=== PATIENT | female | born 1990 | race Caucasian/White ===

== ENCOUNTER 2021-09-13 10:51 | Outpatient (CLI) | payer OTHER ==
[2021-09-14 17:02] LABS: SARS-CoV-2 PCR by NAA Not Detected (NotDetected)
== END 2021-09-13 10:52 | disposition home or self-care (01) ==
LOC: CSHLAB 10:51
PROVIDERS: ATTEND Obstetrics & Gynecology
DX: Z20.822 Contact with and (suspected) exposure to COVID-19 (principal)
CPT/HCPCS: U0003; U0005

== ENCOUNTER 2021-09-18 05:30 | Inpatient (IN) | payer BC, OTHER ==
[2021-09-18] MEDS: Lactated Ringer's 1,000 ML IV SCH ×2 (06:20→07:24)
[2021-09-18] MEDS ORDERED: hydrALAZINE 20 MG/ML VIAL SLOW IVP PRN ×2 (06:25→12:04)
[2021-09-18] MEDS ORDERED: Famotidine/PF 20 mg/2ml Vial SLOW IVP PRN (06:25)
[2021-09-18] MEDS ORDERED: Promethazine HCl 25 MG/ML VIAL IM PRN ×3 (06:25→12:04)
[2021-09-18] MEDS ORDERED: Bicitra 30 ML UDCUP PO PRN (06:25)
[2021-09-18] MEDS ORDERED: Ondansetron PF 4 MG/2 ML Vial IVP PRN ×3 (06:25→12:04)
[2021-09-18] MEDS ORDERED: Docusate 100 MG CAP PO PRN (06:25)
[2021-09-18] MEDS ORDERED: ceFAZolin 2 GM/Dextrose 50 ML 2 GM in Premix Bag 1 BAG IVPB SCH (06:25)
[2021-09-18 06:26] VITALS: BMI 39.9
[2021-09-18 06:40] LABS: Hemoglobin 12.8 g/dL (12.0-15.5); Mean Corpuscular Hemoglobin 30.1 pg (27.0-33.0); Mean Corpuscular Volume 88.5 fl (81.6-98.3); Mean Platelet Volume 10.1 fl (7.4-10.4); Platelet Count 249 10x3/uL (150-450); RBC Distribution Width 14.1 % (11.5-14.5); Red Blood Cell (RBC) Count 4.25 10x6/uL (3.90-5.03); White Blood Cell (WBC) Count 12.8 10x3/uL (3.5-10.5)
[2021-09-18] MEDS ORDERED: Phenylephrine 10 MG/ML VIAL ONE (07:09)
[2021-09-18] MEDS ORDERED: Morphine PF 10 MG/10 ML VIAL ONE (07:10)
[2021-09-18] MEDS ORDERED: PHENYLEPHRINE-NS 100 MCG/ML 10 ML SYRINGE ONE (07:11)
[2021-09-18] MEDS ORDERED: Metoclopramide HCl 10 MG/2 ML VIAL ONE (07:11)
[2021-09-18] MEDS ORDERED: Ondansetron PF 4 MG/2 ML Vial ONE (07:11)
[2021-09-18] MEDS ORDERED: Dexamethasone 4 mg/ml Vial ONE (07:11)
[2021-09-18] MEDS ORDERED: Oxytocin 10 UNITS/ML VIAL ONE ×3 (07:11→08:37)
[2021-09-18 07:17] LABS: Syphilis Antibody Nonreactive (Nonreactive); Syphilis Antibody Index 0.03 S/CO (<1.00 Non-Reactive)
[2021-09-18] MEDS ORDERED: PROPOFOL 20 ML ONE (08:03)
[2021-09-18] MEDS ORDERED: Ketorolac Tromethamine 30 MG/ML VIAL ONE (08:22)
[2021-09-18 08:31] LABS: Hep B Surf Ag Non-Reactive S/CO (NonReactive)
[2021-09-18 08:55] LABS: HBSAg Index 0.18 S/CO (0-0.99)
[2021-09-18] MEDS ORDERED: Hydrocerin (Eucerin) Cream 120 gm Jar TOP PRN (10:10)
[2021-09-18] MEDS ORDERED: Fentanyl 100 MCG/2 ML VIAL SLOW IVP PRN (10:10)
[2021-09-18] MEDS ORDERED: Naloxone HCl 0.4 mg/ml Vial IVP PRN ×2 (10:10)
[2021-09-18] MEDS ORDERED: Ondansetron HCl/PF 4 MG/2 ML Vial IVP PRN (10:10)
[2021-09-18] MEDS ORDERED: Naloxone HCl 0.4 mg/ml Vial IV PRN (10:10)
[2021-09-18] MEDS ORDERED: diphenhydrAMINE 50 MG/ML VIAL IVP PRN (10:10)
[2021-09-18] MEDS ORDERED: Meperidine HCl/PF 25 MG/ML VIAL SLOW IVP PRN (10:10)
[2021-09-18] MEDS ORDERED: Promethazine HCl 25 MG SUPP PR PRN (10:10)
[2021-09-18] MEDS ORDERED: Communication Order-Pharmacy FS SCH (10:15)
[2021-09-18] MEDS ORDERED: Meperidine HCl/PF 25 MG/ML VIAL ONE (10:34)
[2021-09-18] MEDS ORDERED: diphenhydrAMINE 50 MG/ML VIAL ONE (10:35)
[2021-09-18] MEDS ORDERED: NS w/ Oxytocin 30 units 500 ML IV SCH (12:04)
[2021-09-18] MEDS ORDERED: Acetaminophen 325 MG TAB PO PRN (12:04)
[2021-09-18] MEDS ORDERED: Methylergonovine 0.2 MG/ML VIAL IM PRN (12:04)
[2021-09-18] MEDS ORDERED: Lanolin Ointment 7 GM TUBE TOP PRN (12:04)
[2021-09-18] MEDS ORDERED: Bisacodyl 10 MG SUPP PR PRN (12:04)
[2021-09-18] MEDS ORDERED: Misoprostol 200 MCG TAB PR PRN (12:04)
[2021-09-18] MEDS ORDERED: diphenhydrAMINE 25 MG CAP PO PRN (12:04)
[2021-09-18] MEDS ORDERED: Prenatal Vitamin 1 TAB PO SCH (13:00)
[2021-09-18] MEDS ORDERED: Ketorolac Tromethamine 30 MG/ML VIAL IVP PRN (14:00)
[2021-09-18] MEDS ORDERED: HYDROcodone/Acetaminophen 5/325 mg Tablet PO PRN (22:15)
[2021-09-19] MEDS: HYDROcodone/Acetaminophen 5/325 mg Tablet PO PRN ×4 (02:23→20:50)
[2021-09-19 04:38] LABS: Mean Corpuscular HGB CONC 32.9 g/dL (32.0-36.0); Mean Corpuscular Hemoglobin 29.9 pg (27.0-33.0); Mean Platelet Volume 10.5 fl (7.4-10.4); Platelet Count 224 10x3/uL (150-450); RBC Distribution Width 13.7 % (11.5-14.5); Red Blood Cell (RBC) Count 3.34 10x6/uL (3.90-5.03)
[2021-09-19] MEDS: Simethicone Chewable 80 MG TAB PO PRN (08:22)
[2021-09-19] MEDS: Prenatal Vitamin 1 TAB PO SCH (08:22)
[2021-09-19] MEDS ORDERED: Ibuprofen 800 MG TAB ONE (08:53)
[2021-09-19] MEDS: Ibuprofen 800 MG TAB PO SCH ×2 (08:57→17:04)
[2021-09-19] MEDS ORDERED: Boostrix 0.5 ML (Tdap) VIAL IM ONE (12:04)
[2021-09-20] MEDS: Ibuprofen 800 MG TAB PO SCH (00:06)
[2021-09-20] MEDS: HYDROcodone/Acetaminophen 5/325 mg Tablet PO PRN ×2 (02:00→07:46)
[2021-09-20 07:42] VITALS: BP 106/56; TEMP 98.2
[2021-09-20] MEDS: Prenatal Vitamin 1 TAB PO SCH (07:46)
[2021-09-20] MEDS: Simethicone Chewable 80 MG TAB PO PRN (07:47)
== END 2021-09-20 12:00 | disposition home or self-care (01) | DRG 788 ==
LOC: CSHLD 05:30 → CSHPP 11:40
PROVIDERS: ADMIT Obstetrics & Gynecology; ATTEND Obstetrics & Gynecology
PROC: 10D00Z1 Extraction of Products of Conception, Low, Open Approach (ICD-10-PCS; principal; 2021-09-18)
DX: O34.211 Maternal care for low transverse scar from previous cesarean delivery (principal); Z3A.39 39 weeks gestation of pregnancy; Z37.0 Single live birth; Z20.822 Contact with and (suspected) exposure to COVID-19; O99.892 Other specified diseases and conditions complicating childbirth; N73.6 Female pelvic peritoneal adhesions (postinfective); O71.89 Other specified obstetric trauma; O99.824 Streptococcus B carrier state complicating childbirth
CPT/HCPCS: 36415; 51702; 85027; 86780; 86850; 86900; 86901; 87340; J0690; J1100; J1200; J1885; J2175; J2274; J2370; J2405; J2590; J2704; J2765; J7120; S0028